=== PATIENT | female | born 1940 | race Caucasian/White ===

== ENCOUNTER 2018-11-09 17:27 | Observation (INO) ==
[2018-11-09] MEDS ORDERED: MORPHINE 4 MG/1 ML VIAL IV STA (17:57)
[2018-11-09] MEDS ORDERED: methylPREDNISolone SOD SUC 125 MG/2 ML VIAL IV STA (17:57)
[2018-11-09] MEDS ORDERED: SODIUM CHLORIDE 0.9% 500 ML IV STA (17:57)
[2018-11-09] MEDS ORDERED: ASPIRIN 325 MG TABLET PO STA (17:57)
[2018-11-09] MEDS ORDERED: ONDANSETRON 4 MG/2 ML VIAL IV STA (17:57)
[2018-11-09] MEDS ORDERED: ALBUTEROL NEB SOLN 5 MG/ML 20 ML/BOTTLE RESP TX SCH (18:00)
[2018-11-09 18:24] LABS: ABG Base Excess 2.5 MMOL/L (-2.5-2.5); ABG HCO3 26.5 MMOL/L (20-26); ABG PCO2 42.1 MM HG (35-48); ABG PH 7.419 (7.35-7.45); ABG PO2 59.1 MM HG (80-95)
[2018-11-09 19:14] LABS: Basophils # 0.1 10*3/uL (0.0-0.2); Basophils % 0.7 % (0.0-0.8); Eosinophils # 0.1 10*3/uL (0.0-0.87); Eosinophils % 1.9 % (0.00-10.9); Hematocrit 39.1 VOL% (35.7-47.0); Hemoglobin 12.6 GM/DL (12.0-16.0); Immature Granulocytes % 0.1 %; Immature Granulocytes Absolute 0.01 #; Lymphocytes # 2.6 10*3/uL (1.4-4.0); Lymphocytes % 37.5 % (21.3-54.2); Mean Corpuscular HGB Conc 32.2 GM/DL (32-36); Mean Corpuscular Volume 100.5 FL (87-102); Mean Platelet Volume 10.1 FL (9.6-12.0); Monocytes % 9.5 % (1.7-12.7); Neutrophils % 50.3 % (38.7-73.9); Platelet Count 276 T/CUMM (130-400); Red Blood Count 3.89 MC/CUMM (3.8-5.5); Red Cell Distribution Width 13.2 % (9.3-17.3)
[2018-11-09 19:26] LABS: PT Patient Result 10.4 SECS (9.6-12.2)
[2018-11-09 19:40] LABS: Alanine Aminotransferase 17 U/L (13-56); Albumin 3.3 G/DL (3.4-5.0); Alkaline Phosphatase 86 U/L (45-117); Aspartate Amino Transferase 26 U/L (0-37); Bilirubin,Total < 0.39 MG/DL (0.2-1.0); Blood Urea Nitrogen 7 MG/DL (7-18); Calcium 9.1 MG/DL (8.5-10.1); Estimated Glom Filtration Rate 55 ML/MIN; Glucose 93 MG/DL (74-106); Total Protein 6.7 G/DL (6.4-8.3)
[2018-11-09 19:41] LABS: Troponin I < 0.015 NG/ML (0.00-0.045)
[2018-11-09] MEDS ORDERED: ONDANSETRON 4 MG/2 ML VIAL IV PRN (23:24)
[2018-11-09] MEDS ORDERED: MORPHINE 4 MG/1 ML VIAL IV PRN (23:24)
[2018-11-09] MEDS ORDERED: traMADol 50 MG TABLET PO PRN (23:27)
[2018-11-10] MEDS: ALPRAZolam 0.5 MG TABLET PO SCH ×3 (01:02→21:49)
[2018-11-10] MEDS: PARoxetine 20 MG TABLET PO SCH ×2 (01:02→21:49)
[2018-11-10] MEDS: PRIMIDONE 50 MG TABLET PO SCH ×2 (01:03→21:49)
[2018-11-10 03:04] LABS: Risk Ratio 2.19; VLDL CHOLESTEROL 8.2 MG/DL
[2018-11-10] MEDS ORDERED: CLOPIDOGREL 75 MG TABLET PO SCH (09:00)
[2018-11-10] MEDS ORDERED: MONTELUKAST 10 MG TABLET PO SCH (09:00)
[2018-11-10] MEDS ORDERED: LISINOPRIL 20 MG TABLET PO SCH (09:00)
[2018-11-10] MEDS ORDERED: ROSUVASTATIN 20 MG TABLET PO SCH (09:00)
[2018-11-10] MEDS: ALBUTEROL/IPRATROPIUM 3 ML NEB RESP TX PRN ×2 (10:37→22:18)
[2018-11-10] MEDS: METOPROLOL TARTRATE 25 MG TABLET PO SCH ×2 (10:59→23:57)
[2018-11-10] MEDS ORDERED: ASPIRIN EC 81 MG TABLET PO SCH (21:00)
[2018-11-11 08:14] VITALS: BP 148/74
== END 2018-11-11 09:05 | disposition home or self-care (01) ==
LOC: N.ED 17:27 → N.EDINP 17:27 → N.2E 23:43
PROVIDERS: ADMIT Internal Medicine; ATTEND Internal Medicine